=== PATIENT | female | born 2000 | race Two or more races ===

== ENCOUNTER 2022-02-26 16:55 | Emergency (ER) | payer OTHER ==
[~2022-02-26] VITALS: Ht 154.9 cm; Wt 48.1 kg
== END 2022-02-26 20:11 | disposition home or self-care (01) ==
LOC: ER 16:55
DX: S79.911A Unspecified injury of right hip, initial encounter (principal); K29.70 Gastritis, unspecified, without bleeding; V49.9XXA Car occupant (driver) (passenger) injured in unspecified traffic accident, initial encounter; Y93.9 Activity, unspecified; Y92.413 State road as the place of occurrence of the external cause; Y99.9 Unspecified external cause status; Z72.89 Other problems related to lifestyle